=== PATIENT | male | born 1980 | race Caucasian/White ===

== ENCOUNTER → 2016-09-21 | Outpatient (CLI) | payer BC ==
[~2016-09-21] VITALS: Ht 175.3 cm; Wt 102.8 kg
[~2016-09-21] MED LIST: ACET-1311 PO; ALBUAER2 INH; ALL100 PO; ASPCH81X PO; ATOR-26 PO; DOCU100C31 PO; DOXA2TAB PO; FAMO20TA12 PO; HYDR25TA5 PO; LACO50TA PO; LEVE500T13 PO; LISI-725 PO; LVNIS30 SQ; METF-384 PO; NRV/10 PO; POLY1POW2 PO; SENN-65 PO
[2016-09-21 13:20] VITALS: BP 156/95; PULSE 64; Ht 175.3 cm; Wt 102.8 kg
== END | disposition home or self-care (01) ==
LOC: C.NEUR 13:03
PROVIDERS: ATTEND Internal Medicine Pulmonary Disease
DX: G47.30 Sleep apnea, unspecified (principal); J45.909 Unspecified asthma, uncomplicated

== ENCOUNTER → 2016-10-15 | Outpatient (CLI) | payer BC ==
[2016-10-15 13:39] LABS: BASO % 0.4 %; BASO ABS # 0.02 K/uL (0-0.2); COMPLETE YES; EOS % 2.1 %; HEMATOCRIT 36.3 % (42-52); IG% 0.2 %; LYMPH % 30.8 %; LYMPH ABS # 1.58 K/uL (1.2-3.4); MEAN CELL VOLUME 97.3 fL (80-100); MEAN CORPUSCULAR HEMOGLOBIN 31.6 pg (25-34); MEAN CORPUSCULAR HGB CONC 32.5 g/dl (32-36); MONO % 7.4 %; NEUT % 59.1 %; PLATELET COUNT 179 K/uL (130-400); RED BLOOD COUNT 3.73 M/uL (4.7-6.1); WHITE BLOOD COUNT 5.13 K/uL (4.8-10.8)
[2016-10-15 13:48] LABS: ESTIMATED AVERAGE GLUCOSE 131 mg/dl; HA1C FLAG Normal (Normal)
[2016-10-15 14:00] LABS: ALT/SGPT 18 U/L (12-78); BLOOD UREA NITROGEN 14 mg/dl (7-18); CALCIUM 9.1 mg/dl (8.5-10.1); CARBON DIOXIDE 28 mmol/L (21-32); CHLORIDE 109 mmol/L (98-107); GLUCOSE 87 mg/dl (70-99); SODIUM 146 mmol/L (136-145)
[2016-10-15 14:03] LABS: ALB/GLOB RATIO 1.1 (0.9-2); ALKALINE PHOSPHATASE 70 U/L (45-117); AST/SGOT 12 U/L (15-37)
[2016-10-15 14:05] LABS: CHOLESTEROL/HDL RATIO 3.6
== END | disposition home or self-care (01) ==
LOC: C.LABBC 12:03
PROVIDERS: ATTEND Psychiatry & Neurology Neurology
DX: Z86.73 Personal history of transient ischemic attack (TIA), and cerebral infarction without residual deficits (principal); E11.9 Type 2 diabetes mellitus without complications; I10 Essential (primary) hypertension; E53.8 Deficiency of other specified B group vitamins; G40.909 Epilepsy, unspecified, not intractable, without status epilepticus; N20.0 Calculus of kidney; E78.5 Hyperlipidemia, unspecified; K76.0 Fatty (change of) liver, not elsewhere classified

== ENCOUNTER → 2017-04-16 | Outpatient (CLI) | payer BC ==
--- NOTE | 2017-04-16 12:44 | DIAGNOSTIC IMAGING REPORT ---
RIGHT THIRD TOE 3 VIEWS CLINICAL HISTORY: Third toe pain. FINDINGS: 3 views of the right third toe are obtained. No prior studies are available for comparison at the time of dictation. The skeletal structures are well mineralized. There is no radiographic evidence of third toe fracture. The third metatarsophalangeal and interphalangeal joints are well-maintained. The overlying soft tissues are normal as imaged. IMPRESSION: There is no radiographic evidence of right third toe fracture. Electronically signed by: Phu Blanton M.D. 04/16/2017 12:43 PM Dictated Date/Time: 04/16/2017 12:42 PM
== END | disposition home or self-care (01) ==
LOC: C.RADBC 11:40
PROVIDERS: ATTEND Physician Assistant
DX: S90.121A Contusion of right lesser toe(s) without damage to nail, initial encounter (principal); W22.8XXA Striking against or struck by other objects, initial encounter

== ENCOUNTER → 2017-05-03 | Outpatient (CLI) | payer BC ==
[2017-05-03 11:25] LABS: BASO % 0.8 %; BASO ABS # 0.04 K/uL (0-0.2); COMPLETE YES; EOS % 3.7 %; HEMATOCRIT 39.1 % (42-52); IG% 0.6 %; LYMPH % 40.2 %; LYMPH ABS # 2.07 K/uL (1.2-3.4); MEAN CELL VOLUME 99.7 fL (80-100); MEAN CORPUSCULAR HEMOGLOBIN 31.4 pg (25-34); MEAN CORPUSCULAR HGB CONC 31.5 g/dl (32-36); MEAN PLATELET VOLUME 10.7 fL (7.4-10.4); MONO % 8.7 %; PLATELET COUNT 193 K/uL (130-400); RED BLOOD COUNT 3.92 M/uL (4.7-6.1); WHITE BLOOD COUNT 5.15 K/uL (4.8-10.8)
[2017-05-03 11:42] LABS: URINE PROTIEN/CREAT RATIO 0.3 (0-0.2); URINE TOTAL PROTEIN 66.5 mg/dl (0-11.9)
[2017-05-03 12:00] LABS: ESTIMATED AVERAGE GLUCOSE 143 mg/dl; HA1C FLAG Normal (Normal)
[2017-05-03 14:18] LABS: BLOOD UREA NITROGEN 13 mg/dl (7-18); BUN/CREATININE RATIO 13.7 (10-20); CALCIUM 9.1 mg/dl (8.5-10.1); CARBON DIOXIDE 29 mmol/L (21-32); CHLORIDE 108 mmol/L (98-107); CREATININE 0.98 mg/dl (0.60-1.40); GLUCOSE 112 mg/dl (70-99); POTASSIUM 4.2 mmol/L (3.5-5.1); SODIUM 143 mmol/L (136-145); URIC ACID 6.8 mg/dl (2.6-7.2)
== END | disposition home or self-care (01) ==
LOC: C.LABBC 09:17
PROVIDERS: ATTEND Internal Medicine Geriatric Medicine
DX: M10.9 Gout, unspecified (principal); E11.9 Type 2 diabetes mellitus without complications; I10 Essential (primary) hypertension; D64.9 Anemia, unspecified; E55.9 Vitamin D deficiency, unspecified

== ENCOUNTER → 2017-11-11 | Outpatient (CLI) | payer OTHER ==
[2017-11-11 09:23] LABS: BASO % 0.7 %; BASO ABS # 0.04 K/uL (0-0.2); EOS % 2.4 %; EOS ABS # 0.14 K/uL (0-0.5); HEMATOCRIT 37.6 % (42-52); HEMOGLOBIN 12.5 g/dL (14.0-18.0); IG# 0.02 K/uL (0.00-0.02); LYMPH % 34.5 %; LYMPH ABS # 1.99 K/uL (1.2-3.4); MEAN CELL VOLUME 98.2 fL (80-100); MEAN CORPUSCULAR HEMOGLOBIN 32.6 pg (25-34); MEAN CORPUSCULAR HGB CONC 33.2 g/dl (32-36); MEAN PLATELET VOLUME 10.7 fL (7.4-10.4); MONO % 8.7 %; NEUT % 53.4 %; NEUT ABS # 3.07 K/uL (1.4-6.5); PLATELET COUNT 171 K/uL (130-400); RED CELL DISTRIBUTION WIDTH CV 15.4 % (11.5-14.5); RED CELL DISTRIBUTION WIDTH SD 55.2 fL (36.4-46.3); WHITE BLOOD COUNT 5.76 K/uL (4.8-10.8)
[2017-11-11 09:43] LABS: HEMOGLOBIN A1C 7.4 % (4.5-5.6)
[2017-11-11 09:50] LABS: ALBUMIN 3.6 gm/dl (3.4-5.0); ALT/SGPT 59 U/L (12-78); BLOOD UREA NITROGEN 15 mg/dl (7-18); CARBON DIOXIDE 27 mmol/L (21-32); CHOLESTEROL 150 mg/dl (0-200); CREATININE 0.92 mg/dl (0.60-1.40); GLUCOSE 131 mg/dl (70-99); SODIUM 141 mmol/L (136-145)
[2017-11-11 10:00] LABS: ALKALINE PHOSPHATASE 73 U/L (45-117); AST/SGOT 25 U/L (15-37); LDL CHOLESTEROL CALCULATED 79 mg/dl; TOTAL PROTEIN 7.2 gm/dl (6.4-8.2)
== END | disposition home or self-care (01) ==
LOC: C.LAB 08:02
PROVIDERS: ATTEND Internal Medicine Geriatric Medicine
DX: E11.9 Type 2 diabetes mellitus without complications (principal); I10 Essential (primary) hypertension; E78.5 Hyperlipidemia, unspecified; D64.9 Anemia, unspecified; G40.909 Epilepsy, unspecified, not intractable, without status epilepticus; E53.8 Deficiency of other specified B group vitamins; K76.0 Fatty (change of) liver, not elsewhere classified; E55.9 Vitamin D deficiency, unspecified